=== PATIENT | female | born 1930 | race Caucasian/White ===

== ENCOUNTER → 2017-12-01 | Outpatient (CLI) | payer MEDICARE, OTHER ==
[~2017-12-01] MED LIST: ALBU90I INH; ALBU90OI INH; AMOX500 PO; ASPI325; CARB200; CEFU250 PO; CEPH250A PO; CODACE30 PO; CONEST.3; DIAZ2 PO; DIVA500EC PO; DOCU100 PO; DONE5; Desyrel50 MG PO; ERGO50000 PO; ESOM20 PO; Eye Drops15 ML OP; FAMO10; FAMO10 PO; HYDACE5 PO; HYDCHL12.5 PO; K-Tab10 MEQ; K-Tab10 MEQ PO; Kristalose20 GM PO; LAMO100 PO; LEVFLO500; LEVSOD100; LEVSOD125 PO; LEVSOD75 PO; LORA1 PO; LORA10ER PO; MECL25 PO; MEMA10 PO; MEMA5TAB; META400; MIRT15 PO; MULVITMINF PO; MULVITSO PO; OMEP40CA12 PO; OSEL75CA PO; OXYACE5T PO; POTA10T PO; PRED20 PO; PROACE100 PO; RXOXYACE PO; SACC250C PO; SENN187 PO; SIMV10 PO; SIMV20 PO; SULTRIDS PO; VERA80; WARF2.5 PO; WARF4; WARF5; WARF5 PO; WARF6 PO; [UNRECOGNIZED DRUG - OTHER]
== END | disposition home or self-care (01) ==
LOC: LAB UVN 08:13
DX: L89.152 Pressure ulcer of sacral region, stage 2 (principal)
CPT/HCPCS: 87070; 87077; 87186; 87205